=== PATIENT | female | born 1940 | race Caucasian/White ===

== ENCOUNTER 2017-05-24 08:15 | Emergency (ER) | payer MEDICARE ==
[2017-05-24 08:36] VITALS: BP 150/78
--- NOTE | 2017-05-24 08:51 | UC ---
Lower Extremity/Ankle HPI - History of Current Complaint Chief Complaint: UCLowerExtremity Stated Complaint: TOE/FOOT SWOLLEN Time Seen by Provider: 05/24/17 08:23 Onset/Duration: Sudden Onset Severity Initially: Moderate Severity Currently: Moderate Pain Scale Used: 0-10 Numeric - 6 Aggravating Factor(s): Standing, Ambulation Able to Bear Weight: No - Allergies/Home Medications Allergies/Adverse Reactions: Allergies Allergy/AdvReac Type Severity Reaction Status Date / Time Eggs or Egg-derived Products Allergy Mild ABDOMINAL Verified 05/24/17 08:25 CRAMPS Milk-related Compounds Allergy Mild Runny Nose Verified 05/24/17 08:25 Home Medications: Home Medications Ibuprofen [Advil] 400 mg PO Q6HR PRN 05/24/17 [History Confirmed 05/24/17] PMH/Surg Hx/FS Hx/Imm Hx - Surgical History Surgical History: None - Family History Known Family History: Positive: Hypertension Negative: Cardiac Disease, Diabetes - Social History Alcohol Use: None Substance Use Type: None Smoking Status (MU): Former Smoker Type: eCigarettes When Did the Patient Quit Smoking/Using Tobacco: many yrs Review of Systems Constitutional: Negative Skin: Negative Eyes: Negative ENT: Negative Respiratory: Negative Cardiovascular: Negative Gastrointestinal: Negative Genitourinary: Negative Motor: Negative Neurovascular: Negative Musculoskeletal: Other: - LEFT DORSUM FOOT PAIN Neurological: Negative Psychological: Negative All Other Systems Reviewed And Are Negative: Yes Physical Exam Triage Information Reviewed: Yes Appearance: Well-Appearing Vital Signs: Initial Vital Signs Temp 36.6 C 05/24/17 08:20 Pulse 65 05/24/17 08:20 Resp 18 05/24/17 08:20 BP 150/78 05/24/17 08:20 Pulse Ox 98 05/24/17 08:20 Eye Exam: Normal ENT Exam: Normal Dental Exam: Normal Neck exam: Normal Neck: Positive: 1 Respiratory Exam: Normal Cardiovascular Exam: Normal Abdominal Exam: Normal Musculoskeletal: Positive: Edema @ - LEFT DORSUM FOOT PAIN Neurological Exam: Normal Psychological Exam: Normal Skin Exam: Normal Lower Extremity Course/Dx - Differential Dx/Diagnosis Provider Diagnoses: LEFT FOOT DORSUM TENDONITIS Discharge - Discharge Plan Condition: Stable Disposition: HOME Prescriptions: Cephalexin CAP* [Keflex 500 CAP*] 500 mg PO QID #28 cap Naproxen Sodium [Naproxen Sodium 500 MG TAB] 500 mg PO BID WITH MEALS #30 tab Patient Education Materials: Tenosynovitis (ED) Referrals: Guevara Nunez MD [Primary Care Provider] - If Needed
== END 2017-05-24 09:12 | disposition home or self-care (01) ==
LOC: UCEAST 08:15
DX: M77.52 Other enthesopathy of left foot and ankle (principal); Z91.012 Allergy to eggs; Z91.011 Allergy to milk products; I25.2 Old myocardial infarction
CPT/HCPCS: 99212; G0463

== ENCOUNTER 2017-08-27 14:31 | Day surgery (SDC) | payer MEDICARE ==
[~2017-08-27 14:31] MED LIST: Acetaminophen TAB* 325 MG PO PRN; Buffered Lidocaine 0.9% SYRIN* 5 ML/SYR SYRINGE INTRADERM ONE; Buffered Lidocaine 0.9% SYRIN* 5 ML/SYR SYRINGE ONE; Cyclopentolate 1% OPTH.SOL* 2 ML BTL ONE; Ketorolac 0.5% OPHTH (NF) 0.5 % 5 ML BTL ONE; Lidocaine 1% MPF wEPI 200,000* 30 ML SDV ONE; Lidocaine 1% MPF* 2 ML VIAL ONE; Lidocaine 2% EPI 1:200000 MPF* 20 ML VIAL ONE; Neomycin/Polymy/Dex OPTH.SUSP* MAXITROL 0.1% 5 ML ONE; Phenylephrine 2.5% OPTH.SOL* 2 ML BTL ONE; Povidone Iodine 5% OPTH* 30 ML BTL ONE; Proparacaine 0.5% OPHTH.SOL* 15 ML BTL ONE; acetaZOLAMIDE TAB* 250 MG ONE
[2017-08-27] MEDS ORDERED: Midazolam* 1 MG/ML 2 ML VIAL (2 MG) ONE ×2 (15:44→16:00)
[2017-08-27 16:28] VITALS: BP 125/73
--- NOTE | 2017-08-28 02:52 | OP ---
DATE OF OPERATION: 08/27/17 [facility] DATE OF : 40 SURGEON: Sd Love M.D. PREOPERATIVE DIAGNOSIS: Cataract, left eye. POSTOPERATIVE DIAGNOSIS: Cataract, left eye. OPERATIVE PROCEDURE: Phacoemulsification left eye with IOL. DESCRIPTION OF PROCEDURE: The patient was brought to the operating room after being given 1/2% Alcaine with epinephrine drops in the preoperative area. The eye was prepped and draped in the usual sterile fashion. Sterile drape and eyelid speculum were placed. Again, topical 1/2% Alcaine with epinephrine was given. A paracentesis incision was made at the 3 o'clock position with the No.75 blade. Clear cornea incision 2.2 x 2.2-mm was created at the 6 o'clock position starting at the anterior limbus using the 2.2-mm keratome. The anterior chamber was irrigated with 0.4 mL of 1% non-preservative intracameral lidocaine and filled with DisCoVisc. A capsulorrhexis was completed using the cystotome and the Utrata forceps. Hydrodissection was performed with balanced salt solution. The lens nucleus was removed with the Phacoemulsification handpiece without incident. Cortex was removed with the irrigation-aspiration handpiece. The capsular bag was re-inflated using DisCoVisc and an [id number] implant was inserted with the shooter. The irrigation-aspiration handpiece was used to remove all residual DisCoVisc. The eye was refilled with balanced salt solution and the wound checked and found to be watertight. Topical Maxitrol drops were given. [id number]/[facility] #: [id number] [facility]
== END 2017-08-27 16:34 | disposition home or self-care (01) ==
LOC: OREAST 14:31
PROVIDERS: ATTEND Specialist
DX: H25.813 Combined forms of age-related cataract, bilateral (principal); H43.813 Vitreous degeneration, bilateral; K21.9 Gastro-esophageal reflux disease without esophagitis; J44.9 Chronic obstructive pulmonary disease, unspecified; E03.9 Hypothyroidism, unspecified; E78.2 Mixed hyperlipidemia; Z87.891 Personal history of nicotine dependence; Z88.6 Allergy status to analgesic agent; Z88.5 Allergy status to narcotic agent
CPT/HCPCS: A9270-GY; J2001; J2250; V2632

== ENCOUNTER 2017-09-26 09:48 | Emergency (ER) | payer MEDICARE ==
[2017-09-26 10:16] VITALS: BP 139/72
[2017-09-26] MEDS ORDERED: Amoxicillin/Clavulanate TAB* 875 MG PO ONE (10:40)
--- NOTE | 2017-09-26 10:42 | UC ---
Bite Injury/Animal HPI - HPI Summary HPI Summary: Left thumb thumb cat bite yesterday 6 " of lymph streaking----feral cat but she sees and feeds it everyday ---is refusing rabies vaccine - History of Current Complaint Hx Obtained From: Patient ?: No Severity Currently: Moderate Severity Initially: Mild Pain Intensity: 6 Pain Scale Used: 0-10 Numeric Onset/Duration: Sudden Onset, Lasting Days - 1 Type of Bite: Animal - feral cat Has Animal Been Immunized?: No Character: Puncture Aggravating Factor(s): Nothing Alleviating Factor(s): Nothing Associated Signs And Symptoms: Positive: Erythema - with lymphswelling Animal Available for Observation: Yes Animal Control Notified: Yes <Huma Burgess - Last Filed: 09/26/17 15:34> <Nisreen Rogers - Last Filed: 09/27/17 08:30> - History of Current Complaint Chief Complaint: UCBiteInjury Stated Complaint: CAT BITE Time Seen by Provider: 09/26/17 10:33 - Allergies/Home Medications Allergies/Adverse Reactions: Allergies Allergy/AdvReac Type Severity Reaction Status Date / Time Eggs or Egg-derived Products Allergy Mild ABDOMINAL Verified 09/26/17 10:16 CRAMPS Milk-related Compounds Allergy Mild Runny Nose Verified 09/26/17 10:16 ANIMALS Allergy Intermediate Eyes Uncoded 08/22/17 14:57 Itchy/Swollen/Red/Watery PMH/Surg Hx/FS Hx/Imm Hx Previously Healthy: No Endocrine History: Hypothyroidism, Dyslipidemia Respiratory History: Asthma GI/ History: Gastroesophageal Reflux - Surgical History Surgical History: Yes Surgery Procedure, Year, and Place: bi-lat cataracts - Family History Known Family History: Positive: Hypertension Negative: Cardiac Disease, Diabetes - Social History Occupation: Employed Full-time, Works From/At Home, Retired Lives: With Family Alcohol Use: Rare Alcohol Amount: BEERS OCCASIONALLY Substance Use Type: None Smoking Status (MU): Former Smoker Type: Cigarettes Amount Used/How Often: pt now vapes Have You Smoked in the Last Year: No When Did the Patient Quit Smoking/Using Tobacco: 2010 - Immunization History Hx Tetanus, Diphtheria Vaccination: Yes Vaccination Up to Date: Yes <Huma Burgess - Last Filed: 09/26/17 15:34> Review of Systems Constitutional: Negative Skin: Negative Eyes: Negative ENT: Negative Respiratory: Negative Cardiovascular: Negative Gastrointestinal: Negative Genitourinary: Negative Motor: Negative Neurovascular: Negative Musculoskeletal: Negative Neurological: Negative Psychological: Negative Is Patient Immunocompromised?: No All Other Systems Reviewed And Are Negative: Yes <Huma Burgess - Last Filed: 09/26/17 15:34> Physical Exam Triage Information Reviewed: Yes Appearance: Well-Appearing, No Pain Distress, Well-Nourished Vital Signs: Initial Vital Signs Temp 98.9 F 09/26/17 10:08 Pulse 73 09/26/17 10:08 Resp 16 09/26/17 10:08 BP 139/72 09/26/17 10:08 Pulse Ox 99 09/26/17 10:08 Vital Signs Reviewed: Yes Eye Exam: Normal Eyes: Positive: Conjunctiva Clear ENT Exam: Normal ENT: Positive: Normal ENT inspection, Hearing grossly normal. Negative: Nasal congestion, Nasal drainage, Trismus, Muffled voice, Hoarse voice, Sinus tenderness Dental Exam: Normal Neck exam: Normal Neck: Positive: Supple, Nontender, No Lymphadenopathy Respiratory Exam: Normal Respiratory: Positive: Chest non-tender, No respiratory distress, No accessory muscle use Cardiovascular Exam: Normal Cardiovascular: Positive: RRR, Pulses Normal, Brisk Capillary Refill Musculoskeletal Exam: Normal Neurological Exam: Normal Neurological: Positive: Alert, Muscle Tone Normal, Fatigued Psychological Exam: Normal Skin Exam: Normal Skin: Positive: Other - pw on right thumb with erythema and lymph streaking <Huma Burgess - Last Filed: 09/26/17 15:34> Vital Signs: Initial Vital Signs Temp 98.9 F 09/26/17 10:08 Pulse 73 09/26/17 10:08 Resp 16 09/26/17 10:08 BP 139/72 09/26/17 10:08 Pulse Ox 99 09/26/17 10:08 <Nisreen Rogers - Last Filed: 09/27/17 08:30> Bite Injury Course/Dx - Course Course Of Treatment: augmentin BID for 10 days rest thumb in splint, warm soaks/ compress follow with hand surgeon - Differential Dx/Diagnosis Provider Diagnoses: PW with infection right thumb seconday to cat bite <Huma Burgess - Last Filed: 09/26/17 15:34> Discharge <Huma Burgess - Last Filed: 09/26/17 15:34> <Nisreen Rogers - Last Filed: 09/27/17 08:30> - Discharge Plan Condition: Stable Disposition: HOME Prescriptions: Amoxicillin/Clavulanate TAB* [Augmentin TAB 875*] 875 mg PO BID #20 tab Patient Education Materials: Animal Bite (ED), Warm Compress or Soak (ED), Amoxicillin/Clavulanate Potassium (By mouth) Referrals: Guevara Nunez MD [Primary Care Provider] - Janeth Ovalle MD [Medical Doctor] - 2 Days Additional Instructions: To Ed Immediately for worsening infection, streaking, pain, redness fever or chills Attestation Statement User Type: Provider - I was available for consult. This patient was seen by the MARIE. The patient was not presented to, seen by, or examined by me. -Ljj <Nisreen Rogers - Last Filed: 09/27/17 08:30>
== END 2017-09-26 11:13 | disposition home or self-care (01) ==
LOC: UCEAST 09:48
DX: S61.052A Open bite of left thumb without damage to nail, initial encounter (principal); J30.81 Allergic rhinitis due to animal (cat) (dog) hair and dander; W55.01XA Bitten by cat, initial encounter; Y93.89 Activity, other specified; Y92.89 Other specified places as the place of occurrence of the external cause; Z91.012 Allergy to eggs; Z91.011 Allergy to milk products
CPT/HCPCS: 99213; A9270-GY; G0463

== ENCOUNTER 2017-10-29 09:01 | Emergency (ER) | payer MEDICARE ==
[2017-10-29 09:25] VITALS: BP 142/66
--- NOTE | 2017-10-29 10:56 | UC ---
Respiratory Complaint HPI - HPI Summary HPI Summary: 1 WEEK OF PRODUCTIVE COUGH AND NASAL DRAINAGE. HAS SOB AND WHEEZING. H/O COPD. NO FEVER, N/V/D. - History of Current Complaint Chief Complaint: UCRespiratory Stated Complaint: COUGH Time Seen by Provider: 10/29/17 10:31 Hx Obtained From: Patient Onset/Duration: Gradual Onset, Lasting Days, Still Present Timing: Constant Severity Initially: Moderate Severity Currently: Moderate Pain Intensity: 0 Pain Scale Used: 0-10 Numeric Character: Cough: Productive Aggravating Factors: Exertion Alleviating Factors: Bronchodilator Associated Signs And Symptoms: Positive: Dyspnea, Wheezing, URI, Nasal Congestion. Negative: Fever, Chills, Pleuritic Chest Pain - Allergies/Home Medications Allergies/Adverse Reactions: Allergies Allergy/AdvReac Type Severity Reaction Status Date / Time Eggs or Egg-derived Products Allergy Mild ABDOMINAL Verified 10/29/17 09:24 CRAMPS Milk-related Compounds Allergy Mild Runny Nose Verified 10/29/17 09:24 ANIMALS Allergy Intermediate Eyes Uncoded 10/29/17 09:24 Itchy/Swollen/Red/Watery PMH/Surg Hx/FS Hx/Imm Hx Endocrine History: Hypothyroidism, Dyslipidemia Respiratory History: COPD, Asthma GI/ History: Gastroesophageal Reflux - Surgical History Surgical History: Yes Surgery Procedure, Year, and Place: bi-lat cataracts - Family History Known Family History: Positive: Hypertension Negative: Cardiac Disease, Diabetes - Social History Alcohol Use: None Alcohol Amount: BEERS OCCASIONALLY Substance Use Type: None Smoking Status (MU): Former Smoker Type: Cigarettes Amount Used/How Often: pt now vapes Have You Smoked in the Last Year: No When Did the Patient Quit Smoking/Using Tobacco: 2010 - Immunization History Most Recent Influenza Vaccination: Not UTD Most Recent Pneumonia Vaccination: N/A Hx Tetanus, Diphtheria Vaccination: Yes Vaccination Up to Date: Yes Review of Systems Constitutional: Negative ENT: Nasal Discharge Respiratory: Shortness Of Breath, Cough Cardiovascular: Negative Gastrointestinal: Negative All Other Systems Reviewed And Are Negative: Yes Physical Exam Triage Information Reviewed: Yes Appearance: Well-Appearing, No Pain Distress, Well-Nourished Vital Signs: Initial Vital Signs Temp 97.5 F 10/29/17 09:20 Pulse 82 10/29/17 09:20 Resp 16 10/29/17 09:20 BP 142/66 10/29/17 09:20 Pulse Ox 96 10/29/17 09:20 Vital Signs Reviewed: Yes Eyes: Positive: Conjunctiva Clear ENT: Positive: Hearing grossly normal, Pharynx normal, Nasal congestion, TMs normal - LEFT TM NORMAL. RIGHT TM OBSTRUCTED BY CERUMEN. Neck: Positive: Supple, Nontender, No Lymphadenopathy Respiratory: Positive: No respiratory distress, No accessory muscle use, Decreased breath sounds, Wheezing - DIFFUSE Cardiovascular Exam: Normal Abdomen Description: Positive: Soft Musculoskeletal: Positive: No Edema Neurological: Positive: Alert Psychological: Positive: Age Appropriate Behavior Skin: Negative: rashes UC Diagnostic Evaluation - Laboratory O2 Sat by Pulse Oximetry: 96 Respiratory Course/Dx - Course Course Of Treatment: PT DECLINES NEBULIZER TREATMENT TODAY. PREFERS TO USE HER MACHINE AT HOME. WILL TX WITH AZITH AND PREDNISONE. FOLLOW-UP IF NOT IMPROVING. PT ALSO DECLINES EAR IRRIGATION. WILL F/U WITH HER ENT. - Differential Dx/Diagnosis Provider Diagnoses: 1. COPD EXACERBATION. 2. ACUTE BRONCHITIS Discharge - Discharge Plan Condition: Stable Disposition: HOME Prescriptions: Azithromycin [Azithromycin 500 MG TAB] 500 mg PO DAILY #5 tab predniSONE TAB* [Deltasone TAB*] 50 mg PO DAILY #5 tab Patient Education Materials: Acute Bronchitis (ED), COPD (Chronic Obstructive Pulmonary Disease) (ED) Referrals: Guevara Nunez MD [Primary Care Provider] - If Needed Additional Instructions: Seek follow-up if you are not improving as expected with treatment.
== END 2017-10-29 10:57 | disposition home or self-care (01) ==
LOC: UCEAST 09:01
DX: J44.1 Chronic obstructive pulmonary disease with (acute) exacerbation (principal); J20.9 Acute bronchitis, unspecified; J44.0 Chronic obstructive pulmonary disease with (acute) lower respiratory infection; E03.9 Hypothyroidism, unspecified; E78.5 Hyperlipidemia, unspecified; K21.9 Gastro-esophageal reflux disease without esophagitis; Z87.891 Personal history of nicotine dependence
CPT/HCPCS: 99212; G0463

== ENCOUNTER 2018-07-01 12:36 | Emergency (ER) | payer MEDICARE ==
[2018-07-01 12:54] VITALS: BP 130/65
--- NOTE | 2018-07-01 13:00 | UC ---
Skin Complaint HPI - HPI Summary HPI Summary: 77 yo female presents with left 2nd toe redness and swelling over the last 3 days that has progressed to distal foot redness. She tells me that she has a history of cellulitis and gout in this foot and this feels and looks similar. Does have some tenderness with palpation and when walking. Has not taken anything OTC for her symptoms. Denies injury, numbness, or tingling. - History of Current Complaint Chief Complaint: UCLowerExtremity Time Seen by Provider: 07/01/18 13:00 Stated Complaint: SWOLLEN FOOT Hx Obtained From: Patient Onset/Duration: Gradual Onset Onset Severity: Moderate Current Severity: Severe Pain Intensity: 7 Pain Scale Used: 0-10 Numeric - Allergy/Home Medications Allergies/Adverse Reactions: Allergies Allergy/AdvReac Type Severity Reaction Status Date / Time Milk Containing Products Allergy Rash Verified 07/01/18 12:55 animals Allergy Rash Uncoded 07/01/18 12:55 eggs Allergy Rash Uncoded 07/01/18 12:54 Review of Systems Constitutional: Negative Skin: Negative Respiratory: Negative Cardiovascular: Negative Neurovascular: Negative Musculoskeletal: Other: - Left foot and toe redness and pain Neurological: Negative Psychological: Negative All Other Systems Reviewed And Are Negative: Yes PMH/Surg Hx/FS Hx/Imm Hx Endocrine History: Hypothyroidism, Dyslipidemia Respiratory History: COPD, Asthma - Surgical History Surgical History: Yes Surgery Procedure, Year, and Place: LEFT EYE cataracts - Family History Known Family History: Positive: Hypertension Negative: Cardiac Disease, Diabetes - Social History Occupation: Retired Lives: With Family Alcohol Use: None Alcohol Amount: BEERS OCCASIONALLY Substance Use Type: None Smoking Status (MU): Former Smoker Type: Cigarettes Amount Used/How Often: pt now vapes Have You Smoked in the Last Year: No When Did the Patient Quit Smoking/Using Tobacco: 2010 - Immunization History Most Recent Influenza Vaccination: Not UTD Most Recent Pneumonia Vaccination: N/A Hx Tetanus, Diphtheria Vaccination: Yes Vaccination Up to Date: Yes Physical Exam - Summary Physical Exam Summary: GENERAL: NAD. WDWN. No pain distress. SKIN: Left 2nd toe moderate edema and erythema at PIP with severe TTP. Mild erythema extending down to mid 1st-3rd MTs. No streaking, open wounds, or ecchymosis. NECK: Supple. Nontender. No lymphadenopathy. CHEST: No accessory muscle use. Breathing comfortably and in no distress. CV: Pulses intact PT and DP. Brisk cap refill. MSK: Left foot: FROM. Strength 5/5. Left calf is supple and NTTP. NEURO: Alert. Sensations intact and symmetric B/L LEs PSYCH: Age appropriate behavior. Triage Information Reviewed: Yes Vital Signs: Initial Vital Signs Temp 98 F 07/01/18 12:50 Pulse 65 07/01/18 12:50 Resp 16 07/01/18 12:50 BP 130/65 07/01/18 12:50 Pulse Ox 97 07/01/18 12:50 Vital Signs Reviewed: Yes Course/Dx - Course Course Of Treatment: Gout with cellulitis of left foot. - Diagnoses Provider Diagnoses: Gout left 2nd toe. Cellulitis left foot Discharge - Sign-Out/Discharge Documenting (check all that apply): Patient Departure - Discharge Plan Condition: Stable Disposition: HOME Prescriptions: Cephalexin CAP* [Keflex CAP*] 500 mg PO BID #14 cap Naproxen [Naproxen 250 mg tab] 250 mg PO TID #30 tablet Patient Education Materials: Cellulitis (DC), Low Purine Diet (ED), Gout (ED) Referrals: Guevara Nunez MD [Primary Care Provider] - Additional Instructions: If you develop a fever, shortness of breath, chest pain, new or worsening symptoms - please call your PCP or go to the ED. - Billing Disposition and Condition Condition: STABLE Disposition: Home
== END 2018-07-01 13:45 | disposition home or self-care (01) ==
LOC: UCEAST 12:36
DX: M10.072 Idiopathic gout, left ankle and foot (principal); L03.116 Cellulitis of left lower limb; Z91.012 Allergy to eggs; Z91.011 Allergy to milk products; Z91.048 Other nonmedicinal substance allergy status; Z82.49 Family history of ischemic heart disease and other diseases of the circulatory system; Z87.891 Personal history of nicotine dependence
CPT/HCPCS: 99212; G0463

== ENCOUNTER 2018-08-15 13:06 | Emergency (ER) | payer MEDICARE ==
[2018-08-15 13:14] VITALS: BP 141/69
--- NOTE | 2018-08-15 13:32 | UC ---
Respiratory Complaint HPI - HPI Summary HPI Summary: 2 days of cough, nasal congestion and chest congestion. No fever or wheeze. Has baseline shortness of breath due to COPD and asthma. This is unchanged. Is having hip replacement in 4 days so did not want to take any chances with infection. - History of Current Complaint Chief Complaint: UCRespiratory Stated Complaint: COUGH,CONGESTED Time Seen by Provider: 08/15/18 13:17 Hx Obtained From: Patient Onset/Duration: Gradual Onset, Lasting Days, Still Present Timing: Constant Severity Initially: Moderate Severity Currently: Moderate Pain Intensity: 0 Pain Scale Used: 0-10 Numeric Character: Cough: Nonproductive Aggravating Factors: Nothing Alleviating Factors: Nothing Associated Signs And Symptoms: Positive: URI, Nasal Congestion. Negative: Fever , Pleuritic Chest Pain, Wheezing - Allergies/Home Medications Allergies/Adverse Reactions: Allergies Allergy/AdvReac Type Severity Reaction Status Date / Time Milk Containing Products Allergy Mild Sneezing Verified 08/15/18 13:14 eggs Allergy Intermediate GI Upset Uncoded 08/15/18 13:14 animals Allergy Mild Sneezing Uncoded 08/15/18 13:14 PMH/Surg Hx/FS Hx/Imm Hx Respiratory History: COPD, Asthma - Surgical History Surgical History: Yes Surgery Procedure, Year, and Place: LEFT EYE cataracts - Family History Known Family History: Positive: Hypertension Negative: Cardiac Disease, Diabetes - Social History Alcohol Use: Rare Alcohol Amount: BEERS OCCASIONALLY Substance Use Type: None Smoking Status (MU): Never Smoked Tobacco Type: Cigarettes Amount Used/How Often: pt now vapes Have You Smoked in the Last Year: No When Did the Patient Quit Smoking/Using Tobacco: 2010 - Immunization History Most Recent Influenza Vaccination: Not UTD Most Recent Pneumonia Vaccination: N/A Hx Tetanus, Diphtheria Vaccination: Yes Vaccination Up to Date: Yes Review of Systems Constitutional: Negative ENT: Nasal Discharge Respiratory: Cough Cardiovascular: Negative Gastrointestinal: Negative All Other Systems Reviewed And Are Negative: Yes Physical Exam Triage Information Reviewed: Yes Appearance: Well-Appearing, No Pain Distress, Well-Nourished Vital Signs: Initial Vital Signs Temp 96.3 F 08/15/18 13:11 Pulse 96 08/15/18 13:11 Resp 16 08/15/18 13:11 BP 141/69 08/15/18 13:11 Pulse Ox 95 09/21/18 13:11 Vital Signs Reviewed: Yes Eyes: Positive: Conjunctiva Clear ENT: Positive: Hearing grossly normal, Pharynx normal, TMs normal, Other - BILAT EAC WITH CERUMEN Neck: Positive: Supple, Nontender, No Lymphadenopathy Respiratory: Positive: No respiratory distress, No accessory muscle use, Decreased breath sounds. Negative: Wheezing Cardiovascular Exam: Normal Abdomen Description: Positive: Soft Musculoskeletal: Positive: No Edema Neurological: Positive: Alert Psychological: Positive: Normal Response To Family, Age Appropriate Behavior Skin: Negative: rashes UC Diagnostic Evaluation - Laboratory O2 Sat by Pulse Oximetry: 95 Respiratory Course/Dx - Course Course Of Treatment: BILATERAL EAC SUCCESSFULLY IRRIGATED BY RN. TMS CLEAR. URI LIKELY VIRAL BUT GIVEN UPCOMING SURGERY WILL COVER WITH ABX. PREDNISONE TO HELP WITH AIRWAY INFLAMMATION. - Differential Dx/Diagnosis Provider Diagnoses: 1. ACUTE URI. 2. BILATERAL CERUMEN IMPACTION Discharge - Sign-Out/Discharge Documenting (check all that apply): Patient Departure All imaging exams completed and their final reports reviewed: No Studies - Discharge Plan Condition: Stable Disposition: HOME Prescriptions: Amoxicillin PO (*) [Amoxicillin 500 MG CAP*] 1,000 mg PO Q12H #28 cap predniSONE TAB* [Deltasone 20 MG TAB*] 40 mg PO DAILY #6 tab Patient Education Materials: Cerumen Impaction (ED) Referrals: Guevara Nunez MD [Primary Care Provider] - If Needed Additional Instructions: YOUR SYMPTOMS ARE LIKELY VIRALLY MEDIATED AND SHOULD RESOLVE ON THEIR OWN WITH TIME. HOWEVER GIVEN YOUR UPCOMING SURGERY WILL COVER WITH ANTIBIOTICS AND A SHORT BURST OF STEROIDS. CALL YOUR ORTHOPEDIST OFFICE TODAY TO INFORM THEM OF YOUR ILLNESS. REST, HYDRATE, OTC MEDS NEEDED. SEEK FOLLOW-UP IF YOU ARE NOT IMPROVING EXPECTED. NOW THAT YOUR EAR CANALS ARE CLEAR OF WAX YOU MAY USE A QTIP TO GENTLY AND CAREFULLY CLEAN YOUR EARS ONCE OR TWICE A WEEK TO KEEP WAX FROM BUILDING UP. DO NOT INSERT THE QTIP ANY FURTHER THAN THE DEPTH OF THE [place]. - Billing Disposition and Condition Condition: STABLE Disposition: Home
== END 2018-08-15 14:25 | disposition home or self-care (01) ==
LOC: UCEAST 13:06
DX: J06.9 Acute upper respiratory infection, unspecified (principal); H61.23 Impacted cerumen, bilateral
CPT/HCPCS: 99213; G0463

== ENCOUNTER 2019-02-19 09:13 | Emergency (ER) | payer MEDICARE ==
[2019-02-19 09:30] VITALS: BP 142/68
--- NOTE | 2019-02-19 10:25 | UC ---
General HPI - HPI Summary HPI Summary: HEre with care director. States she has had pain, redness and swelling of her right foot for the past 6-7 days. C/O toe redness and pain radiating up the side. Had cellulitis last year and antibiotics worked for her. Foot feels warm. Denies any trauma. No fevers. Otherwise acting well. Meds: reviewed - History of Current Complaint Chief Complaint: UCSkin Stated Complaint: RT FOOT INJURY Time Seen by Provider: 02/19/19 10:12 Pain Intensity: 10 - Allergy/Home Medications Allergies/Adverse Reactions: Allergies Allergy/AdvReac Type Severity Reaction Status Date / Time Milk Containing Products Allergy Mild Sneezing Verified 02/19/19 09:30 eggs Allergy Intermediate GI Upset Uncoded 02/19/19 09:30 animals Allergy Mild Sneezing Uncoded 02/19/19 09:30 Home Medications: Home Medications Albuterol HFA INHALER* [Ventolin HFA Inhaler*] 2 puff INH Q6H PRN 02/19/19 [ History Confirmed 02/19/19] Albuterol inh POWDER (NF) [Proair Respiclick] 90 mcg ALT NARE DAILY WITH MEAL [History Confirmed 02/19/19] Trelegy Flucticasone Furoate 1 puff PO DAILY WITH MEAL 02/19/19 [History Confirmed 02/19/19] PMH/Surg Hx/FS Hx/Imm Hx Endocrine History: Dyslipidemia Respiratory History: COPD - Surgical History Surgical History: Yes Surgery Procedure, Year, and Place: LEFT EYE cataracts - Family History Known Family History: Positive: Hypertension Negative: Cardiac Disease, Diabetes - Social History Alcohol Use: Rare Alcohol Amount: BEERS OCCASIONALLY Substance Use Type: None Smoking Status (MU): Former Smoker Type: Cigarettes Amount Used/How Often: pt now vapes Have You Smoked in the Last Year: No When Did the Patient Quit Smoking/Using Tobacco: 2010 - Immunization History Most Recent Influenza Vaccination: Not UTD Most Recent Pneumonia Vaccination: N/A Hx Tetanus, Diphtheria Vaccination: Yes Vaccination Up to Date: Yes Review of Systems All Other Systems Reviewed And Are Negative: Yes Musculoskeletal: Positive: Other: - foot pain Physical Exam Triage Information Reviewed: Yes Appearance: Well-Appearing, Well-Nourished Vital Signs: Initial Vital Signs Temp 97.6 F 02/19/19 09:25 Pulse 71 03/28/19 09:25 Resp 20 02/19/19 09:25 BP 142/68 02/19/19 09:25 Pulse Ox 100 02/19/19 09:25 Eye Exam: Normal Musculoskeletal: Positive: Other: - right foot: mild edema, no significant erythema, good pulses, mild pain with palpation over toes and lateral ankle. Course/Dx - Course Course Of Treatment: This is a 78 yr old with right foot pain redness and swelling Assessment Mild cellulitis Also could be vascular insuff vs gout flare Plan Start Keflex as prescribed Naproxen as needed for pain Continue to keep legs elevated at rest and recommend wearing compression stockings If symptoms persist or worsen, call your PCP or return to urgent care Recommend good support sneaparkers - Diagnoses Provider Diagnosis: Cellulitis Discharge - Sign-Out/Discharge Documenting (check all that apply): Patient Departure All imaging exams completed and their final reports reviewed: No Studies - Discharge Plan Condition: Good Disposition: HOME Prescriptions: Cephalexin CAP* [Keflex CAP*] 500 mg PO QID #20 cap Naproxen [Naproxen 250 mg tab] 250 mg PO TID PRN #30 tablet PRN Reason: Pain Patient Education Materials: Cellulitis (ED) Referrals: Guevara Nunez MD [Primary Care Provider] - Additional Instructions: Start Keflex as prescribed Naproxen as needed for pain Continue to keep legs elevated at rest and recommend wearing compression stockings If symptoms persist or worsen, call your PCP or return to urgent care Recommend good support sneaterry - Billing Disposition and Condition Condition: GOOD Disposition: Home
== END 2019-02-19 10:34 | disposition home or self-care (01) ==
LOC: UCEAST 09:13
DX: L03.115 Cellulitis of right lower limb (principal); J44.9 Chronic obstructive pulmonary disease, unspecified; E78.5 Hyperlipidemia, unspecified; F17.290 Nicotine dependence, other tobacco product, uncomplicated; Z91.012 Allergy to eggs
CPT/HCPCS: 99212; G0463

== ENCOUNTER 2019-11-15 16:45 | Emergency (ER) | payer MEDICARE ==
[2019-11-15 17:13] VITALS: BP 110/63
--- NOTE | 2019-11-15 17:27 | UC ---
Complaint Female HPI - HPI Summary HPI Summary: patient is having orange/red urine---last voided at noon today decrease to no po intake for 7 days, has been fatigued and not feeding her pets----reports fevers and low back---she has a supportive family that checks in on her - History Of Current Complaint Chief Complaint: UCGU Stated Complaint: URINE ORANGE, FEVER, ABD PAIN, BACK PAIN Time Seen by Provider: 11/15/19 16:57 Hx Obtained From: Patient ?: No Onset/Duration: Gradual Onset, Lasting Weeks - 1, Still Present Timing: Constant Pain Intensity: 8 Pain Scale Used: 0-10 Numeric Character: Dull Aggravating Factor(s): Nothing Alleviating Factor(s): Nothing Associated Signs And Symptoms: Positive: Fever, Back Pain - Allergies/Home Medications Allergies/Adverse Reactions: Allergies Allergy/AdvReac Type Severity Reaction Status Date / Time Milk Containing Products Allergy Mild Sneezing Verified 11/15/19 17:15 eggs Allergy Intermediate GI Upset Uncoded 11/15/19 17:15 animals Allergy Mild Sneezing Uncoded 11/15/19 17:15 PMH/Surg Hx/FS Hx/Imm Hx Previously Healthy: No Endocrine History: Hypothyroidism, Dyslipidemia GI/ History: Gastroesophageal Reflux - Surgical History Surgical History: Yes Surgery Procedure, Year, and Place: LEFT EYE cataracts - Family History Known Family History: Positive: Hypertension Negative: Cardiac Disease, Diabetes - Social History Occupation: Retired Lives: With Family Alcohol Use: None Alcohol Amount: BEERS OCCASIONALLY Substance Use Type: None Smoking Status (MU): Former Smoker Type: Cigarettes Amount Used/How Often: pt now vapes Have You Smoked in the Last Year: No When Did the Patient Quit Smoking/Using Tobacco: 2010 - Immunization History Most Recent Influenza Vaccination: Not UTD Most Recent Pneumonia Vaccination: N/A Hx Tetanus, Diphtheria Vaccination: Yes Vaccination Up to Date: Yes Review of Systems All Other Systems Reviewed And Are Negative: Yes Constitutional: Positive: Fever, Chills, Fatigue Skin: Positive: Negative Eyes: Positive: Negative, Other - swelling around both eyes ENT: Positive: Negative Respiratory: Positive: Shortness Of Breath - "but i have COPD" Cardiovascular: Positive: Negative Gastrointestinal: Positive: Negative Genitourinary: Positive: Other - red/orange urine decreased output Motor: Positive: Weakness Neurovascular: Positive: Negative Musculoskeletal: Positive: Arthralgia - low back Neurological: Positive: Negative Psychological: Positive: Negative Is Patient Immunocompromised?: No Physical Exam Triage Information Reviewed: Yes Appearance: Ill-Appearing, Pain Distress Vital Signs: Initial Vital Signs Temp 96.9 F 11/15/19 17:05 Pulse 94 11/15/19 17:05 Resp 18 11/15/19 17:05 BP 110/63 11/15/19 17:05 Pulse Ox 98 11/15/19 17:05 Vital Signs Reviewed: Yes Eye Exam: Normal Eyes: Positive: Conjunctiva Clear ENT Exam: Normal ENT: Positive: Normal ENT inspection, Hearing grossly normal, Pharynx normal, TMs normal. Negative: Nasal congestion, Trismus, Muffled voice, Hoarse voice, Sinus tenderness Neck exam: Normal Neck: Positive: Supple, Nontender, No Lymphadenopathy Respiratory Exam: Normal Respiratory: Positive: Chest non-tender, Lungs clear, Normal breath sounds, No respiratory distress, No accessory muscle use Cardiovascular Exam: Normal Cardiovascular: Positive: RRR, No Murmur, Pulses Normal, Brisk Capillary Refill Abdominal Exam: Normal Abdomen Description: Positive: Nontender, No Organomegaly, Soft. Negative: CVA Tenderness (R), CVA Tenderness (L), Distended, Guarding, McBurney's Point Tenderness Bowel Sounds: Positive: Present Musculoskeletal Exam: Normal Musculoskeletal: Positive: Strength Intact, ROM Intact, No Edema Neurological Exam: Normal Neurological: Positive: Alert, Muscle Tone Normal - weak Psychological Exam: Normal Skin Exam: Normal Complaint Female Dx - Course Course Of Treatment: patient is unable to void--[place] [facility] [place]--patient is aware and verbalizes understanding and acceptance of plan - Differential Dx/Diagnosis Provider Diagnosis: Decreased urination Discharge ED - Sign-Out/Discharge Documenting (check all that apply): Patient Departure All imaging exams completed and their final reports reviewed: No Studies - Discharge Plan Condition: Guarded Disposition: HOME-RECOMMEND TO ED Patient Education Materials: Urinary Tract Infection in Older Adults (ED) Referrals: Guevara Nunez MD [Primary Care Provider] - Additional Instructions: Please go directly to the emergency department for further care - Billing Disposition and Condition Condition: GUARDED Disposition: Home-Recommend to ED
== END 2019-11-15 17:38 | disposition home health service (06) ==
LOC: UCEAST 16:45
DX: R39.12 Poor urinary stream (principal); Z87.891 Personal history of nicotine dependence; R06.02 Shortness of breath; M25.50 Pain in unspecified joint; Z91.011 Allergy to milk products; Z91.012 Allergy to eggs; Z91.09 Other allergy status, other than to drugs and biological substances
CPT/HCPCS: 99212; G0463

== ENCOUNTER 2019-11-15 18:09 | Emergency (ER) | payer MEDICARE ==
--- NOTE | 2019-11-15 19:28 | ED ---
Complex/Multi-Sys Presentation - HPI Summary HPI Summary: Patient is a 79 y/o F presenting to [facility] with complaints of inability to pass urine, malodorous and discolored urine, lower back pain, fatigue, decreased appetite, and nausea. She reports that she has been feeling "sick" for the past seven days, noting that she has been fatigued, nauseated, and with decreased appetite. Two days ago, discoloration and malodor of urine onset. Patient went to [facility] today, 11/15/19, for evaluation of her Sx. While there, she was unable to provide a urine sample. She states that she has not been able to urinate since 11/15/19 noon. Patient was sent to [facility] for further evaluation. She denies dysuria and vomiting. Patient believes that she had kidney infection "a long time ago". On triage, pain is rated 8/10, nothing is noted to aggravate/ alleviate Sx. PMHx of COPD is endorsed, patient states this is well controlled with her medications. No Hx of diabetes noted. Bladder scan in room was 90 CC. Home medications and allergies are reviewed. - History Of Current Complaint Chief Complaint: EDUrogenitalProblems Hx Obtained From: Patient Onset/Duration: Lasting Days, Still Present Timing: Constant, Days Severity Currently: Severe Location: Pain At: - lower back Aggravating Factor(s): nothing Alleviating Factor(s): nothing Associated Signs And Symptoms: Positive: Nausea, Back Pain, Other - positive - inability to pass urine, malodorous and discolored urine, fatigue, decreased appetite. Negative: Vomiting, Dysuria - Allergies/Home Medications Allergies/Adverse Reactions: Allergies Allergy/AdvReac Type Severity Reaction Status Date / Time Milk Containing Products Allergy Mild Sneezing Verified 11/15/19 17:15 eggs Allergy Intermediate GI Upset Uncoded 11/15/19 17:15 animals Allergy Mild Sneezing Uncoded 11/15/19 17:15 PMH/Surg Hx/FS Hx/Imm Hx Endocrine/Hematology History: Reports: Hx Thyroid Disease - hypo Denies: Hx Diabetes Cardiovascular History: Denies: Hx Hypertension, Hx Pacemaker/ICD Respiratory History: Reports: Hx Asthma, Hx Chronic Obstructive Pulmonary Disease (COPD), Other Respiratory Problems/Disorders - COPD R/T SMOKING 2010 QUIT Denies: Hx Sleep Apnea GI History: Reports: Hx Gastroesophageal Reflux Disease - USES MEDS PT STATES CONTROLLED Denies: Hx Ulcer, Other GI Disorders History: Denies: Hx Renal Disease Musculoskeletal History: Reports: Hx Arthritis - GENERALIZED, Hx Tendonitis - 2ND TOE SWELLING DX AT, Other Musculoskeletal History - SCIATICA Denies: Hx Osteoporosis Sensory History: Reports: Hx Cataracts - BLAT, Hx Contacts or Glasses - GLASES Denies: Hx Hearing Aid Opthamlomology History: Reports: Hx Cataracts - BLAT, Hx Contacts or Glasses - GLASES Psychiatric History: Denies: Hx Panic Disorder - Cancer History Cancer Type, Location and Year: Cervical CA 1986, hysterectomy - Surgical History Surgery Procedure, Year, and Place: LEFT EYE cataracts Hx Anesthesia Reactions: No Infectious Disease History: No Infectious Disease History: Denies: Hx Clostridium Difficile, Hx Hepatitis, Hx Human Immunodeficiency Virus (HIV), Hx of Known/Suspected MRSA, Hx Shingles, Hx Tuberculosis, Hx Known/ Suspected VRE, Hx Known/Suspected VRSA, History Other Infectious Disease, Traveled Outside the [place] in Last 30 Days - Family History Known Family History: Positive: Hypertension Negative: Cardiac Disease, Diabetes - Social History Alcohol Use: None Alcohol Amount: BEERS OCCASIONALLY Substance Use Type: Reports: None Hx Tobacco Use: No Smoking Status (MU): Former Smoker Type: Cigarettes Amount Used/How Often: pt now vapes Have You Smoked in the Last Year: No Review of Systems Positive: Fever Gastrointestinal: Other - positive - decreased appetite Positive: Nausea. Negative: Vomiting Genitourinary: Other - positive - urinary retention, malodor and discoloration of urine Negative: dysuria Musculoskeletal: Other - positive - lower back pain All Other Systems Reviewed And Are Negative: Yes Physical Exam - Summary Physical Exam Summary: Appearance: Well-appearing, Well-nourished, lying in bed comfortably Skin: Warm, dry, no obvious rash Eyes: sclera anicteric, no conjunctival pallor ENT: mucous membranes moist, pharynx appears normal Neck: Supple, nontender Respiratory: Clear to auscultation, no signs of respiratory distress Cardiovascular: Normal S1, S2. No murmurs. Normal distal pulses in tibial and radial bilaterally. Abdomen: Soft, nontender, normal active bowel sounds present Musculoskeletal: Normal, Strength/ROM Intact Neurological: A&Ox3, awake and alert, mentation is normal, speech is fluent and appropriate Psychiatric: affect is normal, does not appear anxious or depressed Triage Information Reviewed: Yes Vital Signs On Initial Exam: Initial Vitals Temp Pulse Resp BP Pulse Ox 96.9 F 92 18 114/51 97 11/15/19 18:15 11/15/19 18:15 11/15/19 18:15 11/15/19 18:15 11/15/19 18:15 Vital Signs Reviewed: Yes Procedures - Sedation Patient Received Moderate/Deep Sedation with Procedure: No Diagnostics - Vital Signs Vital Signs Temp Pulse Resp BP Pulse Ox 11/15/19 18:15 96.9 F 92 18 114/51 97 - Laboratory Result Diagrams: 11/15/19 20:11 11/15/19 20:11 Lab Statement: Any lab studies that have been ordered have been reviewed, and results considered in the medical decision making process. - Radiology CXR Radiology Interpretation Completed By: ED Physician Summary of Radiographic Findings: CXR showed no acute process, pending official report. - Ultrasound RENAL US Ultrasound Interpretation Completed By: Radiologist Summary of Ultrasound Findings: RENAL US IMPRESSION: 1. Sonographically normal kidneys. 2. Hepatic steatosis. THIS REPORT WAS REVIEWED BY ED PHYSICIAN. Re-Evaluation - Re-Evaluation First Eval Re-Evaluation Time: 21:48 Comment: On reval, patient notes some upper airway congestion and a bit of a cough. CXR to be obtained. Complex Multi-Symp Course/Dx Course Of Treatment: Patient is a 79 y/o F presenting to [facility] with complaints of inability to pass urine, malodorous and discolored urine, lower back pain, fatigue, decreased appetite, and nausea. She reports that she has been feeling "sick" for the past seven days, noting that she has been fatigued, nauseated, and with decreased appetite. Two days ago, discoloration and malodor of urine onset. Patient went to [facility] today, 11/15/19, for evaluation of her Sx. While there, she was unable to provide a urine sample. She states that she has not been able to urinate since 11/15/19 noon. Patient was sent to [facility] for further evaluation. She denies dysuria and vomiting. Patient believes that she had kidney infection "a long time ago". On triage, pain is rated 8/10, nothing is noted to aggravate/alleviate Sx. PMHx of COPD is endorsed, patient states this is well controlled with her medications. No Hx of diabetes noted. Bladder scan in room was 90 CC. Physical exam is unremarkable. Bloodwork was obtained. Abnormal values include WBC 17.4, Hgb 9.1, Hct 29, MCV 72, MCH 23, RDW 18, absolute neuts 13.5, absolute monos 2, sodium 133, potassium 3.2, chloride 97, glucose 136, total bilirubin 1.1, AST 87, ALT 78, alk phos 116. UA showed 1+ protein, 1+ blood, 1+ RBC, trace WBC, positive urobilinogen, and present hyaline casts. RENAL US IMPRESSION: 1. Sonographically normal kidneys. 2. Hepatic steatosis. On reval, patient notes some upper airway congestion and a bit of a cough. CXR to be obtained. CXR showed no acute process. Patient discharged to home. Patient will follow up with PCP for repeat UA in a week. If hematuria persists, patient to follow up with urologist. - Diagnoses Provider Diagnoses: Viral syndrome, Hematuria Discharge ED - Sign-Out/Discharge Documenting (check all that apply): Patient Departure - discharge - Discharge Plan Condition: Good Disposition: HOME Patient Education Materials: Hematuria (ED) Referrals: Gerardo Faustin MD [Medical Doctor] - Additional Instructions: We did not find that your urine looks infected, but there is a bit of blood in it, which could just be from being catheterized. The lab will culture the urine to see if there is bacteria in it, and we will contact you if that happens. Otherwise the kidneys looks normal on the ultrasound. I would have your doctor recheck a urinalysis in a week or so and if the blood is persistent you should see a urologist for further evaluation. - Billing Disposition and Condition Condition: GOOD Disposition: Home - Attestation Statements Document Initiated by Jesús: Yes Documenting Scribe: VINH CASTANEDA Provider For Whom Jesús is Documenting (Include Credential): YENI LOUIE MD Scribe Attestation: I, VINH CASTANEDA, scribed for YENI LOUIE MD on 11/17/19 at 0145. Scribe Documentation Reviewed: Yes Provider Attestation: The documentation as recorded by the VINH gamboa accurately reflects the service I personally performed and the decisions made by me, YENI LOUIE MD Status of Scribe Document: Viewed
[2019-11-15 20:21] LABS: Hematocrit 29 % (35-47); Hemoglobin 9.1 g/dL (12.0-16.0); Mean Corpuscular HGB Conc 31 g/dL (31-36); Mean Corpuscular Hemoglobin 23 pg (27-31); Mean Corpuscular Volume 72 fL (80-97); Mean Platelet Volume 7.6 fL (7.4-10.4); Platelet Count 345 10^3/uL (150-450); Red Blood Count 4.02 10^6 /uL (3.70-4.87); Red Cell Distribution Width 18 % (10-15); White Blood Count 17.4 10^3/uL (3.5-10.8)
[2019-11-15 20:37] LABS: Albumin 3.6 g/dL (3.2-5.2); Calcium 8.8 mg/dL (8.6-10.3); EGFR African American 69.5 (>60); EGFR Non-African American 57.4 (>60); Globulin 3.5 g/dL (2-4); Potassium 3.2 mmol/L (3.5-5.0); Total Bilirubin 1.1 mg/dL (0.2-1.0); Total Protein 7.1 g/dL (6.4-8.9)
[2019-11-15 20:49] LABS: ABS Lymphocytes 1.8 10^3/ul (1.0-4.8); ABS Neutrophils 13.5 10^3/ul (1.5-7.7); Eosinophil % 0.1 %; Lymphocyte % 10.6 %; Nucleated Red Blood Cells % 0.1
[2019-11-15 21:03] LABS: Urine Appearance Clear; Urine Bilirubin Negative (Negative); Urine Blood 1+ (Negative); Urine Color Amber; Urine Glucose Negative (Negative); Urine Ketones Negative (Negative); Urine Nitrite Negative (Negative); Urine Protein 1+(30 mg/dL) (Negative); Urine Specific Gravity 1.019 (1.010-1.030); Urine Urobilinogen Positive (Negative)
[2019-11-15 21:07] LABS: Urine Bacteria Absent (Absent); Urine Red Blood Cell 1+(3-5/hpf) (Absent); Urine White Blood Cell Trace(0-5/hpf) (Absent)
[2019-11-15 22:41] VITALS: BP 131/75
== END 2019-11-15 22:41 | disposition home or self-care (01) ==
LOC: ED 18:09
DX: B34.9 Viral infection, unspecified (principal); R31.9 Hematuria, unspecified; K76.0 Fatty (change of) liver, not elsewhere classified; E03.9 Hypothyroidism, unspecified; J44.9 Chronic obstructive pulmonary disease, unspecified; K21.9 Gastro-esophageal reflux disease without esophagitis; Z87.891 Personal history of nicotine dependence
CPT/HCPCS: 36415; 71046; 76775; 80053; 81003; 81015; 83605; 85025; 85060; 87086; 99282

== ENCOUNTER 2021-04-03 10:31 | Inpatient (IN) ==
[~2021-04-03 10:31] MED LIST changes: -Acetaminophen TAB* 325 MG PO PRN; -Buffered Lidocaine 0.9% SYRIN* 5 ML/SYR SYRINGE INTRADERM ONE; -Buffered Lidocaine 0.9% SYRIN* 5 ML/SYR SYRINGE ONE; +Buffered Lidocaine 1% SYRIN 1 ml INTRADERM ONE; -Cyclopentolate 1% OPTH.SOL* 2 ML BTL ONE; +Famotidine IV 10 MG/ML 2 ml VIAL (20 mg) IV ONE; -Ketorolac 0.5% OPHTH (NF) 0.5 % 5 ML BTL ONE; +Lactated Ringers 1000 ml BAG 1,000 ML IV SCH; -Lidocaine 1% MPF wEPI 200,000* 30 ML SDV ONE; -Lidocaine 1% MPF* 2 ML VIAL ONE; -Lidocaine 2% EPI 1:200000 MPF* 20 ML VIAL ONE; -Neomycin/Polymy/Dex OPTH.SUSP* MAXITROL 0.1% 5 ML ONE; -Phenylephrine 2.5% OPTH.SOL* 2 ML BTL ONE; -Povidone Iodine 5% OPTH* 30 ML BTL ONE; -Proparacaine 0.5% OPHTH.SOL* 15 ML BTL ONE; -acetaZOLAMIDE TAB* 250 MG ONE
[2021-04-03] MEDS ORDERED: Famotidine IV 10 MG/ML 2 ml VIAL (20 mg) ONE (10:59)
[2021-04-03] MEDS ORDERED: ceFOXitin 2 GM IVPREMIX 2 GM/50 ML BAG ONE ×2 (10:59→17:02)
[2021-04-03] MEDS ORDERED: Levalbuterol 0.63MG/3ML NEB UNIT OF USE INH ONE ×2 (12:16→12:17)
[2021-04-03] MEDS ORDERED: Naloxone 0.4 mg VIAL 0.4 mg/ml 1 ml VIAL IV PRN (12:18)
[2021-04-03] MEDS ORDERED: Ondansetron 4 mg VIAL 2 MG/ML 2 ml VIAL IV PRN (12:18)
[2021-04-03] MEDS ORDERED: Levalbuterol 0.63MG/3ML NEB UNIT OF USE INH PRN (12:18)
[2021-04-03] MEDS ORDERED: Bupivacaine 0.5% SDV PF 30ML VIAL ONE (12:18)
[2021-04-03] MEDS ORDERED: Lidocaine 2% PF 5 ML VIAL ONE (12:28)
[2021-04-03] MEDS ORDERED: Dexamethasone IV 4 MG/ML VIAL 1 ml VIAL ONE (12:28)
[2021-04-03] MEDS ORDERED: Rocuronium 50 mg VIAL 10 mg/ml 5 ml VIAL (50 mg) ONE ×2 (12:28→13:54)
[2021-04-03] MEDS ORDERED: Propofol 10 MG/ML 20 ML BTL ONE (12:28)
[2021-04-03] MEDS ORDERED: Ondansetron 4 mg VIAL 2 MG/ML 2 ml VIAL ONE ×2 (12:28→21:04)
[2021-04-03] MEDS ORDERED: fentaNYL 250 mcg/5 ml 50 MCG/ML 5 ml VIAL (250 MCG) ONE (12:29)
[2021-04-03] MEDS ORDERED: Midazolam 2 mg/2 ml VIAL 1 mg/ml 2 ml VIAL (2 mg) ONE (12:45)
[2021-04-03] MEDS ORDERED: HYDROmorphone 1 MG/1 ML SYRINGE ONE (16:41)
[2021-04-03] MEDS ORDERED: Phenylephrine 40 mcg/mL 10mL (400mcg) SYRINGE ONE (17:28)
[2021-04-03] MEDS ORDERED: Phenylephrine IV 10 MG/ML 1 ml VIAL ONE (17:37)
[2021-04-03] MEDS ORDERED: EPHEDrine (Pressors) 50 MG/ML VIAL ONE (19:26)
[2021-04-03] MEDS ORDERED: ROPIVACAINE 5 MG/ML 30 ML BTL (0.5%) ONE (19:33)
[2021-04-03] MEDS ORDERED: Lactated Ringers 1000 ml BAG 1,000 ML IV SCH (21:00)
[2021-04-03] MEDS ORDERED: fentaNYL 100 mcg/2 ml 50 MCG/ML VIAL ONE (21:19)
[2021-04-03] MEDS: fentaNYL 100 mcg/2 ml 50 MCG/ML VIAL IV PRN ×2 (21:20→21:33)
[2021-04-03] MEDS: Heparin 5000 UNITS/ML 1 mL VIAL SUBCUT SCH (23:18)
[2021-04-04] MEDS: Heparin 5000 UNITS/ML 1 mL VIAL SUBCUT SCH ×3 (05:13→20:54)
[2021-04-04 06:12] LABS: ABS Lymphocytes 1.6 10^3/ul (1.0-4.8); ABS Neutrophils 15.6 10^3/ul (1.5-7.7); Hematocrit 37 % (35-47); Hemoglobin 12.1 g/dL (12.0-16.0); Lymphocyte % 8.9 %; Mean Corpuscular HGB Conc 33 g/dL (31-36); Mean Corpuscular Hemoglobin 29 pg (27-31); Mean Corpuscular Volume 88 fL (80-97); Mean Platelet Volume 8.5 fL (7.4-10.4); Nucleated Red Blood Cells % 0.1; Platelet Count 228 10^3/uL (150-450); Red Blood Count 4.14 10^6 /uL (3.70-4.87); Red Cell Distribution Width 14 % (10-15); White Blood Count 18.2 10^3/uL (3.5-10.8)
[2021-04-04 06:49] LABS: Calcium 8.4 mg/dL (8.6-10.3); EGFR Non-African American 74.4 (>60); Magnesium 1.8 mg/dL (1.9-2.7); Potassium 4.8 mmol/L (3.5-5.0)
[2021-04-04] MEDS ORDERED: Polyethylene Glycol 3350 17 GM PACKET ONE (08:58)
[2021-04-04] MEDS: Mometasone 220 MCG MDI INH SCH (08:59)
[2021-04-04] MEDS: Tiotropium Brom/Olodaterol MDI INH SCH (08:59)
[2021-04-04] MEDS: Polyethylene Glycol 3350 17 GM PACKET PO SCH ×2 (09:02→21:01)
[2021-04-04] MEDS: Multivitamins/Minerals TAB PO SCH (09:03)
[2021-04-04] MEDS ORDERED: Magnesium Sulfate IV 1GM/100ML 1 GM/100 ML BAG IV ONE (10:12)
[2021-04-05] MEDS: Heparin 5000 UNITS/ML 1 mL VIAL SUBCUT SCH ×3 (05:38→20:25)
[2021-04-05 07:02] LABS: ABS Basophils 0.1 10^3/ul (0-0.2); ABS Eosinophils 0.1 10^3/ul (0-0.6); ABS Lymphocytes 2.3 10^3/ul (1.0-4.8); ABS Monocytes 1.1 10^3/ul (0-0.8); ABS Neutrophils 11.4 10^3/ul (1.5-7.7); Eosinophil % 0.5 %; Hematocrit 36 % (35-47); Hemoglobin 11.8 g/dL (12.0-16.0); Lymphocyte % 15.2 %; Mean Corpuscular HGB Conc 33 g/dL (31-36); Mean Corpuscular Hemoglobin 29 pg (27-31); Mean Corpuscular Volume 88 fL (80-97); Mean Platelet Volume 8.4 fL (7.4-10.4); Platelet Count 247 10^3/uL (150-450); Red Cell Distribution Width 15 % (10-15); White Blood Count 14.9 10^3/uL (3.5-10.8)
[2021-04-05 07:15] LABS: Calcium 8.5 mg/dL (8.6-10.3); Potassium 3.9 mmol/L (3.5-5.0)
[2021-04-05 07:20] LABS: EGFR African American 92.8 (>60); EGFR Non-African American 76.7 (>60)
[2021-04-05] MEDS: Polyethylene Glycol 3350 17 GM PACKET PO SCH ×2 (07:28→20:28)
[2021-04-05] MEDS: Multivitamins/Minerals TAB PO SCH (08:11)
[2021-04-05] MEDS: Tiotropium Brom/Olodaterol MDI INH SCH (09:42)
[2021-04-05] MEDS: Mometasone 220 MCG MDI INH SCH (09:43)
[2021-04-05] MEDS ORDERED: Ondansetron 4 mg VIAL 2 MG/ML 2 ml VIAL ONE (16:42)
[2021-04-05] MEDS ORDERED: Prochlorperazine 5 mg/ml 2 ml VIAL (10 mg) ONE (17:42)
[2021-04-05] MEDS: D5W 1/2 NS KCl 20 meq 1000 ml 1,000 ML IV SCH (17:50)
[2021-04-05 18:46] LABS: Magnesium 2.2 mg/dL (1.9-2.7)
[2021-04-05] MEDS: Prochlorperazine 5 mg/ml 2 ml VIAL (10 mg) IV PRN (23:33)
[2021-04-06] MEDS: Ondansetron 4 mg VIAL 2 MG/ML 2 ml VIAL IV PRN ×3 (03:19→19:08)
[2021-04-06] MEDS: Prochlorperazine 5 mg/ml 2 ml VIAL (10 mg) IV PRN (05:54)
[2021-04-06] MEDS: Heparin 5000 UNITS/ML 1 mL VIAL SUBCUT SCH ×3 (05:54→21:15)
[2021-04-06] MEDS: D5W 1/2 NS KCl 20 meq 1000 ml 1,000 ML IV SCH ×2 (05:54→16:05)
[2021-04-06 06:56] LABS: ABS Basophils 0.1 10^3/ul (0-0.2); ABS Lymphocytes 1.1 10^3/ul (1.0-4.8); ABS Monocytes 0.7 10^3/ul (0-0.8); ABS Neutrophils 11.6 10^3/ul (1.5-7.7); Eosinophil % 0.2 %; Hematocrit 35 % (35-47); Hemoglobin 11.5 g/dL (12.0-16.0); Lymphocyte % 8.2 %; Mean Corpuscular HGB Conc 33 g/dL (31-36); Mean Corpuscular Hemoglobin 29 pg (27-31); Mean Corpuscular Volume 87 fL (80-97); Mean Platelet Volume 8.6 fL (7.4-10.4); Platelet Count 232 10^3/uL (150-450); Red Blood Count 3.99 10^6 /uL (3.70-4.87); Red Cell Distribution Width 15 % (10-15); White Blood Count 13.5 10^3/uL (3.5-10.8)
[2021-04-06 07:13] LABS: Calcium 8.3 mg/dL (8.6-10.3); EGFR African American 95.8 (>60); EGFR Non-African American 79.2 (>60); Potassium 4.2 mmol/L (3.5-5.0)
[2021-04-06] MEDS: Polyethylene Glycol 3350 17 GM PACKET PO SCH ×2 (11:33→21:14)
[2021-04-06] MEDS: Multivitamins/Minerals TAB PO SCH (11:33)
[2021-04-06] MEDS: Tiotropium Brom/Olodaterol MDI INH SCH (11:34)
[2021-04-06] MEDS: Mometasone 220 MCG MDI INH SCH (11:44)
[2021-04-06] MEDS: Albuterol HFA INHALER 8 gm MDI INH PRN (21:10)
[2021-04-07] MEDS: Albuterol HFA INHALER 8 gm MDI INH PRN (01:31)
[2021-04-07] MEDS: D5W 1/2 NS KCl 20 meq 1000 ml 1,000 ML IV SCH (01:55)
[2021-04-07] MEDS: Ondansetron 4 mg VIAL 2 MG/ML 2 ml VIAL IV PRN ×2 (02:18→06:03)
[2021-04-07] MEDS: Prochlorperazine 5 mg/ml 2 ml VIAL (10 mg) IV PRN ×2 (04:05→09:55)
[2021-04-07] MEDS: Heparin 5000 UNITS/ML 1 mL VIAL SUBCUT SCH ×2 (06:08→14:05)
[2021-04-07] MEDS: Tiotropium Brom/Olodaterol MDI INH SCH (07:52)
[2021-04-07] MEDS: Mometasone 220 MCG MDI INH SCH (07:53)
[2021-04-07] MEDS: Polyethylene Glycol 3350 17 GM PACKET PO SCH (11:10)
[2021-04-07] MEDS: Multivitamins/Minerals TAB PO SCH (11:12)
[2021-04-07 15:37] VITALS: BP 139/69
[2021-04-07] MEDS ORDERED: Docusate LIQ 100 MG/10 ML UDC PO SCH (21:00)
== END 2021-04-07 17:10 | disposition home or self-care (01) | DRG 348 ==
LOC: AA 10:31 → SSU 22:34
PROVIDERS: ADMIT Surgery; ATTEND Surgery

== ENCOUNTER 2022-12-31 15:38 | Inpatient (IN) ==
[2022-12-31] MEDS ORDERED: Morphine 10 MG/ML VIAL (1 ml) ONE (16:34)
[2022-12-31] MEDS ORDERED: NS 0.9% 1000 ml BAG 1,000 ML IV SCH (17:30)
[2022-12-31] MEDS ORDERED: Morphine 2 MG/ML SYRINGE IV PRN (17:36)
[2022-12-31] MEDS ORDERED: Ondansetron ODT 4 mg TAB 4 MG TAB PO PRN (18:07)
[2022-12-31] MEDS ORDERED: Albuterol 2.5mg/3 ml (0.083%) NEB.SOLN INH PRN (20:11)
[2023-01-01 03:32] LABS: Urine Appearance Cloudy; Urine Bilirubin Negative (Negative); Urine Blood 3+ (Negative); Urine Color Yellow; Urine Glucose Negative (Negative); Urine Ketones Negative (Negative); Urine Nitrite Negative (Negative); Urine Protein 1+(30 mg/dL) (Negative); Urine Specific Gravity 1.023 (1.002-1.030); Urine Urobilinogen Negative (Negative)
[2023-01-01 03:37] LABS: Urine Bacteria Absent (Absent); Urine Red Blood Cell 3+(>10/hpf) (Absent); Urine Squamous Epithelial Cell Present (Absent); Urine White Blood Cell 3+(>20/hpf) (Absent)
[2023-01-01 04:35] LABS: ABS Basophils 0.1 10^3/ul (0-0.2); ABS Eosinophils 0.2 10^3/ul (0-0.6); ABS Lymphocytes 1.7 10^3/ul (1.0-4.8); ABS Monocytes 0.8 10^3/ul (0-0.8); Eosinophil % 1.4 %; Hematocrit 31 % (35-47); Hemoglobin 10.1 g/dL (12.0-16.0); Lymphocyte % 14.8 %; Mean Corpuscular HGB Conc 32 g/dL (31-36); Mean Corpuscular Hemoglobin 28 pg (27-31); Mean Corpuscular Volume 86 fL (80-97); Mean Platelet Volume 6.8 fL (7.4-10.4); Platelet Count 556 10^3/uL (150-450); Red Blood Count 3.65 10^6 /uL (3.70-4.87); Red Cell Distribution Width 18 % (10-15); White Blood Count 11.7 10^3/uL (3.5-10.8)
[2023-01-01 04:51] LABS: Albumin 2.9 g/dL (3.2-5.2); Albumin/Globulin Ratio 0.8 (1-3); Calcium 8.6 mg/dL (8.6-10.3); Creatinine, Serum 0.76 mg/dL (0.51-0.95); Globulin 3.5 g/dL (2-4); Total Bilirubin 0.3 mg/dL (0.2-1.0); Total Protein 6.4 g/dL (6.4-8.9); eGFR CKD-EPI 78.2 (>60)
[2023-01-01] MEDS: cefTRIAXone 1 gm/50 mL D5W 1 GM/50 ML BAG IV SCH (10:13)
[2023-01-01] MEDS ORDERED: Famotidine IV 10 MG/ML 2 ml VIAL (20 mg) IV SLOW PU PRN (10:35)
[2023-01-01] MEDS: Albuterol 2.5mg/3 ml (0.083%) NEB.SOLN INH SCH (20:14)
[2023-01-02] MEDS: Albuterol 2.5mg/3 ml (0.083%) NEB.SOLN INH SCH (07:28)
[2023-01-02] MEDS: cefTRIAXone 1 gm/50 mL D5W 1 GM/50 ML BAG IV SCH (08:49)
[2023-01-02] MEDS ORDERED: PTO:Omeprazole 20 mg CAP (NF) PO SCH ×2 (09:00)
[2023-01-02 12:11] VITALS: BP 147/95
== END 2023-01-02 12:15 | disposition home or self-care (01) | DRG 375 ==
LOC: CHOA 15:38 → SSU 19:45
PROVIDERS: ADMIT Internal Medicine Medical Oncology; ATTEND Internal Medicine